=== PATIENT | male | born 2000 | race Caucasian/White ===

== ENCOUNTER 2025-09-11 19:52 | Emergency (ER) | payer BC ==
[~2025-09-11] VITALS: Ht 182.9 cm; Wt 78.2 kg
[2025-09-11 20:05] VITALS: BP 137/85; PULSE 82; RESP 16; O2SAT 98
--- NOTE | 2025-09-11 20:28 | RADIOLOGY REPORT ---
EXAM: DI KNEE 3 VWS CLINICAL INDICATION: KNEE PAIN TECHNIQUE: DI KNEE 3 VWS, right COMPARISON: None FINDINGS/IMPRESSION: There is no evidence of acute fracture or dislocation. The visualized joint space is well maintained. The alignment is anatomical. There is no radiopaque foreign body.
--- NOTE | 2025-09-11 22:35 | Physician Documentation ---
History of Present Illness ~ Chief Complaint: Knee Pain Stated Complaint: R KNEE PAIN Time Seen by MD: 21:14 HPI 25-year-old male otherwise healthy presents to the emergency department for evaluation of right knee injury. No other injuries reported at that time. Reports while snowboarding he got his snowboard incontinence no and twisted and turned. [place] a pop and had swelling. Presents to the emergency department with mild swelling and an antalgic gait. He is grossly neurologically intact. He has restricted range of motion. He denies prior knee injuries. Medication Reconciliation Allergies: Coded Allergies: No Known Allergies (Unverified , 09/11/25) Review of Systems All Other Systems at this time: Reviewed and Negative ROS See HPI Musculoskeletal: Reports: see HPI Physical Exam Vital Signs: RN Vital Signs have been reviewed: Yes, Temperature: 98.0, Heart Rate: 82, Respiratory Rate: 16, BP: 137/85, Pulse Oximetry: 98, Weight: 78.200 Oxygen Flow Rate: 0 General Appearance: alert, WD/WN Head: normal inspection EENT: PERRL/EOMI Neck: non-tender Respiratory: no respiratory distress Chest: no accessory muscle use Gastrointestinal: non-tender Knees: limited ROM, soft tissue tenderness, swelling (Unable to do reliable exam due to pain. No obvious laxity, negative patellar grind, reduced range of motion due to pain swelling) Achilles Tendon: normal Feet: normal inspection Distal Function: no motor deficit, no sensory deficit Skin: normal color Neurologic: oriented x4 Psychiatric: normal mood/affect Progress Results/Orders Results/Orders Orders - LUBA WEINBERG PAC Ortho Orders (09/11/25 ) Vital Signs 09/11/25 09/11/25 20:05 23:00 Temp 98.0 98.0 Pulse 82 Resp 16 B/P (MAP) 137/85 Pulse Ox 98 O2 Flow Rate 0 Medical Decision Making Additional information obtaine: family Findings Examination history consistent with a acute knee sprain with or without internal derangement. Patient will be placed in a knee immobilizer provided crutches and be asked to be nonweightbearing. He is to follow up with primary care in the o rthopedist in 7-14 days for evaluation. NSAID therapy for pain relief along with ice. Patient's safely discharged in the emergency department with reassuring x-rays for no fracture. General Diff Dx:Considerations: Include: Abrasion, Contusion, Fracture, Hematoma, Laceration, Malunion, Neurovascular injury, Open fracture, Sprain, Ulcer, Other Knee Diff Dx:Considerations: Include: Abrasion, Arthritis, Contusion, DJD, Fracture-femur, Fracture-fibula, Fracture-patella, Fracture-tibia, Gout, Hematoma, Laceration, Meniscus injury, Neurovascular injury, Open fracture, Rheumatoid arthritis, Septic, Sprain, Sprain-MCL, Sprain-LCL, Sprain-ACL, Sprain-PCL, Other Ankle Diff Dx:Considerations: Include: Other (Contributory) Foot Diff Dx:Considerations: Include: Other Toe Diff Dx:Considerations: Include: Other (Contributory) Departure Disposition: 01 HOME / SELF CARE / HOMELESS Impression: Primary Impression: Sprain of knee Qualified Codes: S83.91XA - Sprain of unspecified site of right knee, initial encounter Condition: Stable Discharge Instructions: Acute Knee Pain, Adult Additional Instructions: Please wear knee immobilizer and use crutches and be nonweightbearing for 7-10 days. Make follow up appointment with the orthopedist and/or primary care physician for repeated orthopedic knee examination. Return to the emergency department in the interim as needed for increased pain. Thank you for visiting [facility] Emergency Department. Referrals: NO PRIMARY CARE PROVIDER (PCP) Education Educated: Patient Educated regarding: diagnosis, treatment, prognosis, need for follow up Signature Scribe Signature: . Attestation: LUBA ANN Sep 11, 2025 22:35
[2025-09-11 23:00] VITALS: TEMP 98
== END 2025-09-11 23:01 | disposition home or self-care (01) ==
LOC: ER 19:53
DX: S83.91XA Sprain of unspecified site of right knee, initial encounter (principal); X58.XXXA Exposure to other specified factors, initial encounter; Y93.89 Activity, other specified; Y92.89 Other specified places as the place of occurrence of the external cause; Y99.8 Other external cause status
CPT/HCPCS: 29505; 73562; 99283